=== PATIENT | female | born 2005 | race Caucasian/White ===

== ENCOUNTER 2024-05-11 12:43 | Observation (INO) | payer OTHER ==
[2024-05-11 14:41] LABS: HCG URINE TEST POSITIVE (NEGATIVE)
[2024-05-11 14:44] LABS: Absolute Neutrophil Ct (ANC) 12.22 x10^3/uL (1.56-6.13); BASOPHIL % 0.3 % (0.1-1.2); Basophil (Absolute #) 0.04 x10^3/uL (0.01-0.08); Eosinophil % 0.3 % (0.7-5.8); Eosinophil (Absolute #) 0.05 x10^3/uL (0.04-0.36); Hematocrit 38.9 % (34.1-44.9); Hemoglobin 13.2 g/dL (11.2-15.7); IMMATURE GRAN # 0.05 x10^3u/L (0.001-0.031); IMMATURE GRAN % 0.3 % (0.001-0.429); Lymphocyte (Absolute #) 1.62 x10^3/uL (1.18-3.74); Lymphocytes % 11.1 % (19.3-51.7); Mean Cell Volume 82.2 fL (79.4-94.8); Mean Corpuscular Hemoglobin 27.9 pg (25.6-32.2); Mean Corpuscular Hgb Concent. 33.9 g/dL (32.2-35.5); Mean Platelet Volume 8.9 fL (9.4-12.3); Monocyte (Absolute #) 0.64 x10^3/uL (0.24-0.86); Monocytes % 4.4 % (4.7-12.5); Neutrophil % 83.6 % (34.0-71.1); Platelet Count 351 x10^3/uL (182-369); Red Blood Count 4.73 x10^6/uL (3.93-5.22); Red Cell Distribution Width 13.3 % (11.7-14.4); White Blood Count 14.6 x10^3/uL (3.98-10.04)
[2024-05-11 14:56] LABS: Appearance Cloudy (Clear); Bacteria Many /HPF (None Seen); Bilirubin Negative (Negative); Blood Trace (Negative); Epithelial Cells Few /HPF (None Seen); Glucose, Urine Negative (Negative); Ketones >=160 (Negative); Leukocyte Esterase Small (Negative); Nitrite Positive (Negative); Ph 5.5 (4.6-8.0); Protein,Urine Dip 100 (Negative); RBC 0-2 /HPF (0-5); Specific Gravity 1.025 (1.005-1.030)
[2024-05-11 14:56] LABS: ALBUMIN 4.7 g/dL (3.5-5.0); ANION GAP 20.2 MEQ/L (5-15); BILIRUBIN,TOTAL 0.9 mg/dL (0.2-1.3); Calcium 9.4 mg/dL (8.4-10.2); Creatinine 1 0.55 mg/dL (0.52-1.04); EST GLOMERULAR FILTRATION RATE 133.7 ML/MIN; Total Protein 8.7 g/dL (6.3-8.2)
[2024-05-11 14:57] LABS: Hyaline Casts None Seen /LPF (0-2); Mucus Moderate /HPF (NEGATIVE)
[2024-05-11] MEDS ORDERED: Zofran 4 MG/2 ML VIAL ONE (15:02)
[2024-05-11] MEDS ORDERED: TYLENOL 325 MG ONE (15:02)
[2024-05-11] MEDS ORDERED: Sodium Chloride 0.9% 1000 ML 1,000 ML ONE (15:02)
[2024-05-11] MEDS: Sodium Chloride 0.9% 1000 ML 1,000 ML IV STA (15:05)
[2024-05-11 15:06] LABS: Potassium 2.9 mmol/L (3.5-5.1)
[2024-05-11] MEDS: TYLENOL 325 MG PO ONE (15:06)
[2024-05-11] MEDS: Zofran 4 MG/2 ML VIAL IV ONE (15:08)
[2024-05-11 15:22] LABS: INFLUENZA A NEGATIVE (NEGATIVE); INFLUENZA B NEGATIVE (NEGATIVE); RESPIRATORY SYNCTIAL VIRUS NEGATIVE (NEGATIVE); SARS-CoV-2 Xpert Express NEGATIVE (NEGATIVE)
[2024-05-11] MEDS ORDERED: POTASSIUM CHLORIDE 20 mEq IN WATER 100ML 100 ML IV ONE (16:23)
[2024-05-11] MEDS ORDERED: Klor Con ONE (16:23)
[2024-05-11] MEDS: POTASSIUM CHLORIDE 20 mEq IN WATER 100ML 20 MEQ/100 ML BAG IV ONE (16:25)
[2024-05-11] MEDS: Klor Con PO ONE (16:25)
[2024-05-11] MEDS: Sodium Chloride 0.9% 500 ML 500 ML IV SCH (16:26)
--- NOTE | 2024-05-11 18:42 | ERPHSYRPT ---
- History of Present Illness Time Seen by Provider: 05/11/24 13:53 Source: patient Exam Limitations: no limitations Patient Subjective Stated Complaint: C/O cough, fatigue, headache X 2 weeks. Denies fever. States coughs so hard at times that she vomits up mucuous. No naus ea. Triage Nursing Assessment: Patient ambulated back to ER. She is alert and oriented. SOB with exertion. Forceful, non-productive cough during assessment. Lungs clear. REIS WNL. Patient is pale. Patient is hoarse. Physician History: 19-year-old female presented in the ER with flulike symptoms for the last 2 weeks with progressive worsening. Patient reports nonproductive cough with bouts and sometimes does have vomiting. Because of repeated coughing having generalized chest soreness. No difficulty breathing otherwise. Reports having nausea without abdominal pain. Denies any UTI symptoms. No fever or chills but generalized weakness, headache, sinus/nasal congestion. She has been evaluated outpatient twice with negative workup including x-rays chest x 2. Patient is tachycardic on presentation with heart rate in 140s on presentation. Allergies/Adverse Reactions: amoxicillin [From Augmentin] Allergy (Verified 05/11/24 13:59) cefdinir [From Omnicef] Allergy (Verified 05/11/24 13:59) cephalexin [From Keflex] Allergy (Verified 05/11/24 13:59) clavulanic acid [From Augmentin] Allergy (Verified 05/11/24 13:59) Home Medications: No Reportable Medications [No Reported Medications] 05/11/24 [History] Hx Tetanus, Diphtheria Vaccination/Date Given: Yes Immunizations Up to Date: Yes Travel Risk - International Travel Have you traveled outside of the country in past 3 weeks: No - Emerging Infectious Disease Are you exhibiting symptoms associated with any current EIDs: Yes Symptoms: Cough: New Onset, Headaches/Body Aches/, Shortness of Breath - Review of Systems Constitutional: Fatigue, Weakness Eyes: No Symptoms Ears, Nose, & Throat: Nose Congestion, Sinus Drainage Respiratory: Cough Cardiac: Chest Pain Abdominal/Gastrointestinal: Nausea Genitourinary Symptoms: No Symptoms Musculoskeletal: Myalgias Skin: No Symptoms Neurological: Dizziness, Headache Psychological: Anxiety Endocrine: No Symptoms Hematologic/Lymphatic: No Symptoms - Past Medical History Pertinent Past Medical History: Yes Respiratory History: Bronchitis - Past Surgical History Past Surgical History: Yes Other Surgical History: tubes in ears - Female History Hx Last Menstrual Period: April 04, 2024 Hx Now: No - Social History Smoking Status: Never smoker Exposure to second hand smoke: No Drug Use: marijuana - Social Determinants of Health Will the patient participate in the screening: Declined to provide - Nursing Vital Signs Nursing Vital Signs: Initial Vital Signs Pulse Rate 140 H 05/11/24 14:00 Respiratory Rate 19 05/11/24 14:00 Blood Pressure 136/90 05/11/24 14:00 O2 Sat by Pulse Oximetry 98 05/11/24 14:00 Pain Scale Pain Intensity 5 - Physical Exam General Appearance: no apparent distress, alert, anxiety Eye Exam: PERRL/EOMI Ears, Nose, Throat Exam: moist mucous membranes, pharyngeal erythema Neck Exam: normal inspection, non-tender, supple, full range of motion Respiratory Exam: normal breath sounds, lungs clear Cardiovascular Exam: normal heart sounds, tachycardia Gastrointestinal/Abdomen Exam: soft, normal bowel sounds, No tenderness Back Exam: normal inspection Extremity Exam: normal inspection, normal range of motion Neurologic Exam: alert, oriented x 3, cooperative, motion picture set grip II-XII nml as tested SpO2 Interpretation: normal SpO2: 97 O2 Delivery: Room Air Ordered Tests: Active Orders 24 hr Category Date Time Status IV Insertion STAT Care 05/11/24 14:12 Active Pulse Oximetry (ED) STAT Care 05/11/24 14:12 Active Telemetry q4h Care 05/11/24 15:31 Active BLOOD CULTURE Stat Lab 05/11/24 14:38 Received CBC W DIFF Stat Lab 05/11/24 14:38 Completed CMP Stat Lab 05/11/24 14:38 Completed CULTURE,URINE Stat Lab 05/11/24 14:13 Received HCG QUALITATIVE, URINE Stat Lab 05/11/24 14:13 Completed HCG, Quantitative (Inhouse) Stat Lab 05/11/24 14:13 Completed LIPASE Stat Lab 05/11/24 14:13 Completed Lactic Acid Stat Lab 05/11/24 14:12 Completed MAGNESIUM Stat Lab 05/11/24 14:15 Completed MONO SCREEN Stat Lab 05/11/24 14:13 Completed UA W/RFX UR CULTURE Stat Lab 05/11/24 14:13 Completed Medication Summary Generic Name Dose Route Start Last Admin Trade Name Freq PRN Reason Stop Dose Admin Sodium Chloride 500 mls @ 50 mls/hr 05/11/24 16:30 05/11/24 16:26 Sodium Chloride 0.9% 500 Ml IV 06/10/24 16:29 50 mls/hr .Q10H CAMILO Administration Discontinued Medications Generic Name Dose Route Start Last Admin Trade Name Solo PRN Reason Stop Dose Admin Acetaminophen 975 mg 05/11/24 14:57 05/11/24 15:06 Acetaminophen 325 Mg Tablet PO 05/11/24 14:58 975 mg STAT ONE Administration Acetaminophen Confirm 05/11/24 15:02 Acetaminophen 325 Mg Tablet Administered 05/11/24 15:03 Dose 975 mg .ROUTE .STK-MED ONE Sodium Chloride 1,000 mls @ 999 mls/hr 05/11/24 14:57 05/11/24 16:10 Sodium Chloride 0.9% 1000 Ml IV 05/11/24 15:57 Infused .Q1H1M STA Infusion Sodium Chloride Confirm 05/11/24 15:02 Sodium Chloride 0.9% 1000 Ml Administered 05/11/24 15:03 Dose 1,000 mls @ ud .ROUTE .STK-MED ONE Potassium Chloride 20 meq in 100 mls @ 50 mls/hr 05/11/24 15:31 05/11/24 16:25 Potassium Chloride 20 Meq In Water 100ml IV 05/11/24 17:30 50 mls/hr STAT ONE Administration Potassium Chloride Confirm 05/11/24 16:23 Potassium Chloride 20 Meq In Water 100ml Administered 05/11/24 16:24 Dose 100 mls @ ud IV .STK-MED ONE Ondansetron HCl 4 mg 05/11/24 14:57 05/11/24 15:08 Ondansetron Hcl 4 Mg/2 Ml Vial IV 05/11/24 14:58 4 mg STAT ONE Administration Ondansetron HCl Confirm 05/11/24 15:02 Ondansetron Hcl 4 Mg/2 Ml Vial Administered 05/11/24 15:03 Dose 4 mg .ROUTE .STK-MED ONE Potassium Chloride 40 meq 05/11/24 15:31 05/11/24 16:25 Potassium Chloride Tab 10 Meq Tab PO 05/11/24 15:32 40 meq STAT ONE Administration Potassium Chloride Confirm 05/11/24 16:23 Potassium Chloride Tab 10 Meq Tab Administered 05/11/24 16:24 Dose 40 meq .ROUTE .STK-MED ONE Lab/Rad Data: Laboratory Result Diagrams 05/11/24 14:38 05/11/24 14:38 Laboratory Results 05/11/24 05/11/24 05/11/24 Range/Units 14:38 14:38 14:38 WBC 14.6 H (3.98-10.04) x10^3/uL RBC 4.73 (3.93-5.22) x10^6/uL Hgb 13.2 (11.2-15.7) g/dL Hct 38.9 (34.1-44.9) % MCV 82.2 (79.4-94.8) fL MCH 27.9 (25.6-32.2) pg MCHC 33.9 (32.2-35.5) g/dL RDW 13.3 (11.7-14.4) % Plt Count 351 (182-369) x10^3/uL MPV 8.9 L (9.4-12.3) fL Gran % 83.6 H (34.0-71.1) % Immature Gran % (Auto) 0.3 (0.001-0.429) % Nucleat RBC Rel Count 0.0 (0.00-0.2) % Eos # (Auto) 0.05 (0.04-0.36) x10^3/uL Immature Gran # (Auto) 0.05 H (0.001-0.031) x10^3u/L Absolute Lymphs (auto) 1.62 (1.18-3.74) x10^3/uL Absolute Monos (auto) 0.64 (0.24-0.86) x10^3/uL Absolute Nucleated RBC 0.00 (0.00-0.012) x10^3u/L Lymphocytes % 11.1 L (19.3-51.7) % Monocytes % 4.4 L (4.7-12.5) % Eosinophils % 0.3 L (0.7-5.8) % Basophils % 0.3 (0.1-1.2) % Absolute Granulocytes 12.22 H (1.56-6.13) x10^3/uL Basophils # 0.04 (0.01-0.08) x10^3/uL Sodium 136 (135-145) mmol/L Potassium 2.9 L* (3.5-5.1) mmol/L Chloride 100 (98-107) mmol/L Carbon Dioxide 18 L (22-30) mmol/L Anion Gap 20.2 H (5-15) MEQ/L BUN 6 L (7-17) mg/dL Creatinine 0.55 (0.52-1.04) mg/dL Estimated GFR 133.7 ML/MIN Glucose 100 (74-106) mg/dL Lactic Acid (0.4-2.0) Calcium 9.4 (8.4-10.2) mg/dL Magnesium (1.6-2.3) mg/dL Total Bilirubin 0.90 (0.2-1.3) mg/dL AST 26 (14-36) U/L ALT 21 (0-35) U/L Alkaline Phosphatase 117 (38-126) U/L Serum Total Protein 8.7 H (6.3-8.2) g/dL Albumin 4.7 (3.5-5.0) g/dL Lipase (23-300) U/L Beta HCG, Quant mIU/ml Urine Color (Yellow) Urine Appearance (Clear) Urine pH (4.6-8.0) Ur Specific [place] (1.005-1.030) Urine Protein (Negative) Urine Glucose (UA) (Negative) mg/dL Urine Ketones (Negative) Urine Blood (Negative) Urine Nitrite (Negative) Urine Bilirubin (Negative) Urine Urobilinogen (0.2) mg/dL Ur Leukocyte Esterase (Negative) U Hyaline Cast (Auto) (0-2) /LPF Urine Microscopic RBC (0-5) /HPF Urine Microscopic WBC (0-5) /HPF Ur Epithelial Cells (None Seen) /HPF Urine Bacteria (None Seen) /HPF Urine Mucus (NEGATIVE) /HPF Urine Culture Reflexed (NO) Urine HCG, Qual (NEGATIVE) Monoscreen (NEGATIVE) Influenza Type A Ag NEGATIVE (NEGATIVE) Influenza Type B Ag NEGATIVE (NEGATIVE) RSV (PCR) NEGATIVE (NEGATIVE) SARS-CoV-2 (PCR) NEGATIVE (NEGATIVE) 05/11/24 05/11/24 05/11/24 Range/Units 14:15 14:13 14:13 WBC (3.98-10.04) x10^3/uL RBC (3.93-5.22) x10^6/uL Hgb (11.2-15.7) g/dL Hct (34.1-44.9) % MCV (79.4-94.8) fL MCH (25.6-32.2) pg MCHC (32.2-35.5) g/dL RDW (11.7-14.4) % Plt Count (182-369) x10^3/uL MPV (9.4-12.3) fL Gran % (34.0-71.1) % Immature Gran % (Auto) (0.001-0.429) % Nucleat RBC Rel Count (0.00-0.2) % Eos # (Auto) (0.04-0.36) x10^3/uL Immature Gran # (Auto) (0.001-0.031) x10^3u/L Absolute Lymphs (auto) (1.18-3.74) x10^3/uL Absolute Monos (auto) (0.24-0.86) x10^3/uL Absolute Nucleated RBC (0.00-0.012) x10^3u/L Lymphocytes % (19.3-51.7) % Monocytes % (4.7-12.5) % Eosinophils % (0.7-5.8) % Basophils % (0.1-1.2) % Absolute Granulocytes (1.56-6.13) x10^3/uL Basophils # (0.01-0.08) x10^3/uL Sodium (135-145) mmol/L Potassium (3.5-5.1) mmol/L Chloride (98-107) mmol/L Carbon Dioxide (22-30) mmol/L Anion Gap (5-15) MEQ/L BUN (7-17) mg/dL Creatinine (0.52-1.04) mg/dL Estimated GFR ML/MIN Glucose (74-106) mg/dL Lactic Acid (0.4-2.0) Calcium (8.4-10.2) mg/dL Magnesium 1.9 (1.6-2.3) mg/dL Total Bilirubin (0.2-1.3) mg/dL AST (14-36) U/L ALT (0-35) U/L Alkaline Phosphatase (38-126) U/L Serum Total Protein (6.3-8.2) g/dL Albumin (3.5-5.0) g/dL Lipase 32 (23-300) U/L Beta HCG, Quant 368.00 mIU/ml Urine Color (Yellow) Urine Appearance (Clear) Urine pH (4.6-8.0) Ur Specific [place] (1.005-1.030) Urine Protein (Negative) Urine Glucose (UA) (Negative) mg/dL Urine Ketones (Negative) Urine Blood (Negative) Urine Nitrite (Negative) Urine Bilirubin (Negative) Urine Urobilinogen (0.2) mg/dL Ur Leukocyte Esterase (Negative) U Hyaline Cast (Auto) (0-2) /LPF Urine Microscopic RBC (0-5) /HPF Urine Microscopic WBC (0-5) /HPF Ur Epithelial Cells (None Seen) /HPF Urine Bacteria (None Seen) /HPF Urine Mucus (NEGATIVE) /HPF Urine Culture Reflexed (NO) Urine HCG, Qual POSITIVE (NEGATIVE) Monoscreen NEGATIVE (NEGATIVE) Influenza Type A Ag (NEGATIVE) Influenza Type B Ag (NEGATIVE) RSV (PCR) (NEGATIVE) SARS-CoV-2 (PCR) (NEGATIVE) 05/11/24 05/11/24 Range/Units 14:13 14:12 WBC (3.98-10.04) x10^3/uL RBC (3.93-5.22) x10^6/uL Hgb (11.2-15.7) g/dL Hct (34.1-44.9) % MCV (79.4-94.8) fL MCH (25.6-32.2) pg MCHC (32.2-35.5) g/dL RDW (11.7-14.4) % Plt Count (182-369) x10^3/uL MPV (9.4-12.3) fL Gran % (34.0-71.1) % Immature Gran % (Auto) (0.001-0.429) % Nucleat RBC Rel Count (0.00-0.2) % Eos # (Auto) (0.04-0.36) x10^3/uL Immature Gran # (Auto) (0.001-0.031) x10^3u/L Absolute Lymphs (auto) (1.18-3.74) x10^3/uL Absolute Monos (auto) (0.24-0.86) x10^3/uL Absolute Nucleated RBC (0.00-0.012) x10^3u/L Lymphocytes % (19.3-51.7) % Monocytes % (4.7-12.5) % Eosinophils % (0.7-5.8) % Basophils % (0.1-1.2) % Absolute Granulocytes (1.56-6.13) x10^3/uL Basophils # (0.01-0.08) x10^3/uL Sodium (135-145) mmol/L Potassium (3.5-5.1) mmol/L Chloride (98-107) mmol/L Carbon Dioxide (22-30) mmol/L Anion Gap (5-15) MEQ/L BUN (7-17) mg/dL Creatinine (0.52-1.04) mg/dL Estimated GFR ML/MIN Glucose (74-106) mg/dL Lactic Acid 1.2 (0.4-2.0) Calcium (8.4-10.2) mg/dL Magnesium (1.6-2.3) mg/dL Total Bilirubin (0.2-1.3) mg/dL AST (14-36) U/L ALT (0-35) U/L Alkaline Phosphatase (38-126) U/L Serum Total Protein (6.3-8.2) g/dL Albumin (3.5-5.0) g/dL Lipase (23-300) U/L Beta HCG, Quant mIU/ml Urine Color Dark Yellow A (Yellow) Urine Appearance Cloudy A (Clear) Urine pH 5.5 (4.6-8.0) Ur Specific [place] 1.025 (1.005-1.030) Urine Protein 100 A (Negative) Urine Glucose (UA) Negative (Negative) mg/dL Urine Ketones >=160 A (Negative) Urine Blood Trace (Negative) Urine Nitrite Positive A (Negative) Urine Bilirubin Negative (Negative) Urine Urobilinogen 1.0 A (0.2) mg/dL Ur Leukocyte Esterase Small A (Negative) U Hyaline Cast (Auto) None Seen (0-2) /LPF Urine Microscopic RBC 0-2 (0-5) /HPF Urine Microscopic WBC 3-5 (0-5) /HPF Ur Epithelial Cells Few (None Seen) /HPF Urine Bacteria Many A (None Seen) /HPF Urine Mucus Moderate A (NEGATIVE) /HPF Urine Culture Reflexed YES (NO) Urine HCG, Qual (NEGATIVE) Monoscreen (NEGATIVE) Influenza Type A Ag (NEGATIVE) Influenza Type B Ag (NEGATIVE) RSV (PCR) (NEGATIVE) SARS-CoV-2 (PCR) (NEGATIVE) - Progress Progress: improved, re-examined Air Movement: good Progress Note: 05/11/24 18:42 19-year-old is evaluated in the ER for flulike symptoms for 2 weeks. Patient is tachycardic on presentation, lungs clear to auscultation otherwise. No difficulty breathing. No wheezing. She is given fluids, feeling better on reevaluation with improvement in resting heart rate from 1 40-1 20s but still gets tachycardic with little activity. Workup showed white count of 14, chemistries consistent with dehydration with a gap of 20 and bicarb of 18. Does have UTI. Normal lipase. She is given a dose of antibiotics. Also has a potassium of 2.9 with normal magnesium and started on oral and IV replacement. Patient has a positive urine test and hCG quant is 368. Is too early to have any kind of heart tones and patient does not have any pelvic/abdominal pain and tenderness. Patient later on reported that she is 7 para 2 and does have 1 tubal and 3 miscarriages. I do not think patient needs ultrasound and her stuff is more of a medical related, would benefit with IV hydration and treating UTI. Although I did discussed with Dr. Dickey OB on-call and he would be available in case if hospitalist need any help during her stay in the hospital but otherwise patient would be admitted to the hospitalist service. I have discussed with Dr. Flores and patient is being admitted. Discussed the results of workup with patient and plan of admission w [facility] she understands and agrees. 05/11/24 18:45 Blood Culture(s) Obtained: No Antibiotics given: No Discussed with : Liane Marquez Counseled pt/family regarding: lab results, diagnosis, rad results Medical Desision Making - Discussion of managment Care discussed with:: specialist (Dr. Dickey [employer] and Dr. Flores hospitalist) Reviewed:: Test results Agreed on:: Treatment plan, place in obs Will see patient: in hospital - Diagnostic Testing Diagnostic test were ordered, analyzed, and reviewed by me: Yes - Risk of complications The pt has a mod risk of morbidity or mortality based on: Need for prescription drug management The pt has a high risk of morbidity or mortality based on: Decision regarding hospitilization or escalation of hosp level of care - Departure Departure Disposition: Observation Clinical Impression: UTI in , Viral syndrome, Dehydration, Hypokalemia Condition: Stable Critical Care Time: No Referrals: FRIEDA MILLER MD [Primary Care Provider] - Follow up/PCP as directed
[2024-05-11] MEDS ORDERED: TYLENOL 325 MG PO PRN (20:33)
[2024-05-11] MEDS ORDERED: Zofran 4 MG/2 ML VIAL IV PRN (20:33)
--- NOTE | 2024-05-11 21:03 | PCM.HP ---
History of Present Illness - Chief Complaint Chief Complaint: viral syndrome, dehydration, tachycardia Date: 05/11/24 History of Present Illness: is a 19 year old female with a prior history of a tubal who now presented to the hospital with flulike symptoms for the last 2 weeks with progressive worsening. Patient reports productive cough with green sputum and sometimes does have vomiting. Because of repeated coughing having generalized chest soreness. No difficulty breathing otherwise. Reports having nausea without abdominal pain. She reports foul smelling urine and dark urine over the last few days, but denies hematuria or pyuria. No fever or chills but generalized weakness, headache, sinus/nasal congestion. She has been evaluated outpatient twice with negative workup including x-rays chest x 2. In the ED, the patient was tachycardic on presentation with heart rate in 140s on presentation. The patient was noted to have a UTI by UA and given antibiotics and was also noted to have a (this is her 7th ). 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 - Review of Systems Constitutional: No Symptoms Eyes: No Symptoms Ears, Nose, & Throat: No Symptoms Respiratory: Cough Cardiac: Chest Pain Abdominal/Gastrointestinal: Nausea Genitourinary Symptoms: Other (dark urine, foul smelling urine) Musculoskeletal: No Symptoms Skin: No Symptoms Neurological: No Symptoms Psychological: No Symptoms Endocrine: No Symptoms Hematologic/Lymphatic: No Symptoms Medications & Allergies Home Medications: Home Medication List No Reportable Medications [No Reported Medications] 05/11/24 [History Confirmed 05/11/24] Allergies/Adverse Reactions: Allergies Allergy/AdvReac Type Severity Reaction Status Date / Time amoxicillin [From Augmentin] Allergy Verified 05/11/24 13:59 cefdinir [From Omnicef] Allergy Verified 05/11/24 13:59 cephalexin [From Keflex] Allergy Verified 05/11/24 13:59 clavulanic acid Allergy Verified 05/11/24 13:59 [From Augmentin] - Past Medical History Past Medical History: Yes Neurological History: No Pertinent History ENT History: No Pertinent History Cardiac History: No Pertinent History Respiratory History: Bronchitis Endocrine Medical History: No Pertinent History Musculoskelatal History: No Pertinent History GI Medical History: No Pertinent History History: No Pertinent History Pyscho-Social History: No Pertinent History Reproductive Disorders: No Pertinent History - Female History Hx Last Menstrual Period: 04/04/2024 Are you now?: Yes - Past Surgical History Past Surgical History: Yes Neuro Surgical History: No Pertinent History Cardiac History: No Pertinent History Respiratory Surgery: No Pertinent History GI Surgical History: No Pertinent History Genitourinary Surgical Hx: No Pertinent History Musculskeletal Surgical Hx: No Pertinent History Female Surgical History: No Pertinent History Other Surgical History: tubes in ears Family History: No family history of urological disorders are reported. - Social History Smoking Status: Current every day smoker How long have you smoked: 5 years Exposure to second hand smoke: No Alcohol: None Drug Use: marijuana - Social Determinants of Health Will the patient participate in the screening: Yes Do you worry about a steady place to live?: No Do you have any problems with any of the following?: No known problems In the past 12 months,have you had to go without utilities?: No Have you or anyone in your house had to go without enough: No Transportation Issues: No Has anyone in your support network made you feel unsafe?: No Does the patient want assistance with any of the above?: No - Physical Exam Vital Signs: Vital Signs - 24 hr Temp Pulse Resp BP BP Pulse Ox 05/11/24 19:50 99.5 F 113 H 18 116/72 98 05/11/24 19:15 116 H 16 122/84 96 05/11/24 19:00 121 H 21 122/83 96 05/11/24 18:49 97 05/11/24 18:45 105 H 19 117/81 97 05/11/24 18:30 118 H 18 118/78 97 05/11/24 18:15 109 H 13 117/76 95 05/11/24 18:00 108 H 22 110/84 96 05/11/24 17:45 125 H 16 131/74 96 05/11/24 17:30 117 H 20 118/72 97 05/11/24 17:15 117 H 18 122/71 96 05/11/24 17:00 126 H 15 99/73 96 05/11/24 16:45 115 H 13 121/79 97 05/11/24 16:30 116 H 14 123/68 96 05/11/24 16:15 132 H 18 123/65 97 05/11/24 16:00 126 H 19 121/60 97 05/11/24 15:45 122 H 20 103/70 97 05/11/24 15:30 133 H 20 120/69 96 05/11/24 15:18 123 H 27 H 108/81 97 05/11/24 15:00 137 H 17 122/80 97 05/11/24 14:30 122/66 97 05/11/24 14:12 99 05/11/24 14:01 98.1 F 134 H 22 136/90 98 05/11/24 14:00 140 H 19 136/90 98 General Appearance: no apparent distress, alert Neurologic Exam: alert, oriented x 3, cooperative, poultry scalder II-XII nml as tested, normal mood/affect, nml cerebellar function Eye Exam: PERRL/EOMI, eyes nml inspection Ears, Nose, Throat Exam: normal ENT inspection Neck Exam: normal inspection, non-tender, supple, full range of motion Respiratory Exam: normal breath sounds, lungs clear Cardiovascular Exam: regular rate/rhythm, normal heart sounds Gastrointestinal/Abdomen Exam: soft, normal bowel sounds Back Exam: normal range of motion Extremity Exam: normal inspection, normal range of motion Skin Exam: normal color Lymphatic Exam: adenopathy Results - Labs Lab/Micro Results: Lab Results-Last 24 Hours 05/11/24 05/11/24 05/11/24 Range/Units 14:12 14:13 14:13 WBC (3.98-10.04) x10^3/uL RBC (3.93-5.22) x10^6/uL Hgb (11.2-15.7) g/dL Hct (34.1-44.9) % MCV (79.4-94.8) fL MCH (25.6-32.2) pg MCHC (32.2-35.5) g/dL RDW (11.7-14.4) % Plt Count (182-369) x10^3/uL MPV (9.4-12.3) fL Gran % (34.0-71.1) % Immature Gran % (Auto) (0.001-0.429) % Nucleat RBC Rel Count (0.00-0.2) % Eos # (Auto) (0.04-0.36) x10^3/uL Immature Gran # (Auto) (0.001-0.031) x10^3u/L Absolute Lymphs (auto) (1.18-3.74) x10^3/uL Absolute Monos (auto) (0.24-0.86) x10^3/uL Absolute Nucleated RBC (0.00-0.012) x10^3u/L Lymphocytes % (19.3-51.7) % Monocytes % (4.7-12.5) % Eosinophils % (0.7-5.8) % Basophils % (0.1-1.2) % Absolute Granulocytes (1.56-6.13) x10^3/uL Basophils # (0.01-0.08) x10^3/uL Sodium (135-145) mmol/L Potassium (3.5-5.1) mmol/L Chloride (98-107) mmol/L Carbon Dioxide (22-30) mmol/L Anion Gap (5-15) MEQ/L BUN (7-17) mg/dL Creatinine (0.52-1.04) mg/dL Estimated GFR ML/MIN Glucose (74-106) mg/dL Lactic Acid 1.2 (0.4-2.0) Calcium (8.4-10.2) mg/dL Magnesium (1.6-2.3) mg/dL Total Bilirubin (0.2-1.3) mg/dL AST (14-36) U/L ALT (0-35) U/L Alkaline Phosphatase (38-126) U/L Serum Total Protein (6.3-8.2) g/dL Albumin (3.5-5.0) g/dL Lipase (23-300) U/L Beta HCG, Quant mIU/ml Urine Color Dark Yellow A (Yellow) Urine Appearance Cloudy A (Clear) Urine pH 5.5 (4.6-8.0) Ur Specific [place] 1.025 (1.005-1.030) Urine Protein 100 A (Negative) Urine Glucose (UA) Negative (Negative) mg/dL Urine Ketones >=160 A (Negative) Urine Blood Trace (Negative) Urine Nitrite Positive A (Negative) Urine Bilirubin Negative (Negative) Urine Urobilinogen 1.0 A (0.2) mg/dL Ur Leukocyte Esterase Small A (Negative) U Hyaline Cast (Auto) None Seen (0-2) /LPF Urine Microscopic RBC 0-2 (0-5) /HPF Urine Microscopic WBC 3-5 (0-5) /HPF Ur Epithelial Cells Few (None Seen) /HPF Urine Bacteria Many A (None Seen) /HPF Urine Mucus Moderate A (NEGATIVE) /HPF Urine Culture Reflexed YES (NO) Urine HCG, Qual POSITIVE (NEGATIVE) Monoscreen NEGATIVE (NEGATIVE) Influenza Type A Ag (NEGATIVE) Influenza Type B Ag (NEGATIVE) RSV (PCR) (NEGATIVE) SARS-CoV-2 (PCR) (NEGATIVE) 05/11/24 05/11/24 05/11/24 Range/Units 14:13 14:15 14:38 WBC 14.6 H (3.98-10.04) x10^3/uL RBC 4.73 (3.93-5.22) x10^6/uL Hgb 13.2 (11.2-15.7) g/dL Hct 38.9 (34.1-44.9) % MCV 82.2 (79.4-94.8) fL MCH 27.9 (25.6-32.2) pg MCHC 33.9 (32.2-35.5) g/dL RDW 13.3 (11.7-14.4) % Plt Count 351 (182-369) x10^3/uL MPV 8.9 L (9.4-12.3) fL Gran % 83.6 H (34.0-71.1) % Immature Gran % (Auto) 0.3 (0.001-0.429) % Nucleat RBC Rel Count 0.0 (0.00-0.2) % Eos # (Auto) 0.05 (0.04-0.36) x10^3/uL Immature Gran # (Auto) 0.05 H (0.001-0.031) x10^3u/L Absolute Lymphs (auto) 1.62 (1.18-3.74) x10^3/uL Absolute Monos (auto) 0.64 (0.24-0.86) x10^3/uL Absolute Nucleated RBC 0.00 (0.00-0.012) x10^3u/L Lymphocytes % 11.1 L (19.3-51.7) % Monocytes % 4.4 L (4.7-12.5) % Eosinophils % 0.3 L (0.7-5.8) % Basophils % 0.3 (0.1-1.2) % Absolute Granulocytes 12.22 H (1.56-6.13) x10^3/uL Basophils # 0.04 (0.01-0.08) x10^3/uL Sodium (135-145) mmol/L Potassium (3.5-5.1) mmol/L Chloride (98-107) mmol/L Carbon Dioxide (22-30) mmol/L Anion Gap (5-15) MEQ/L BUN (7-17) mg/dL Creatinine (0.52-1.04) mg/dL Estimated GFR ML/MIN Glucose (74-106) mg/dL Lactic Acid (0.4-2.0) Calcium (8.4-10.2) mg/dL Magnesium 1.9 (1.6-2.3) mg/dL Total Bilirubin (0.2-1.3) mg/dL AST (14-36) U/L ALT (0-35) U/L Alkaline Phosphatase (38-126) U/L Serum Total Protein (6.3-8.2) g/dL Albumin (3.5-5.0) g/dL Lipase 32 (23-300) U/L Beta HCG, Quant 368.00 mIU/ml Urine Color (Yellow) Urine Appearance (Clear) Urine pH (4.6-8.0) Ur Specific [place] (1.005-1.030) Urine Protein (Negative) Urine Glucose (UA) (Negative) mg/dL Urine Ketones (Negative) Urine Blood (Negative) Urine Nitrite (Negative) Urine Bilirubin (Negative) Urine Urobilinogen (0.2) mg/dL Ur Leukocyte Esterase (Negative) U Hyaline Cast (Auto) (0-2) /LPF Urine Microscopic RBC (0-5) /HPF Urine Microscopic WBC (0-5) /HPF Ur Epithelial Cells (None Seen) /HPF Urine Bacteria (None Seen) /HPF Urine Mucus (NEGATIVE) /HPF Urine Culture Reflexed (NO) Urine HCG, Qual (NEGATIVE) Monoscreen (NEGATIVE) Influenza Type A Ag (NEGATIVE) Influenza Type B Ag (NEGATIVE) RSV (PCR) (NEGATIVE) SARS-CoV-2 (PCR) (NEGATIVE) 05/11/24 05/11/24 Range/Units 14:38 14:38 WBC (3.98-10.04) x10^3/uL RBC (3.93-5.22) x10^6/uL Hgb (11.2-15.7) g/dL Hct (34.1-44.9) % MCV (79.4-94.8) fL MCH (25.6-32.2) pg MCHC (32.2-35.5) g/dL RDW (11.7-14.4) % Plt Count (182-369) x10^3/uL MPV (9.4-12.3) fL Gran % (34.0-71.1) % Immature Gran % (Auto) (0.001-0.429) % Nucleat RBC Rel Count (0.00-0.2) % Eos # (Auto) (0.04-0.36) x10^3/uL Immature Gran # (Auto) (0.001-0.031) x10^3u/L Absolute Lymphs (auto) (1.18-3.74) x10^3/uL Absolute Monos (auto) (0.24-0.86) x10^3/uL Absolute Nucleated RBC (0.00-0.012) x10^3u/L Lymphocytes % (19.3-51.7) % Monocytes % (4.7-12.5) % Eosinophils % (0.7-5.8) % Basophils % (0.1-1.2) % Absolute Granulocytes (1.56-6.13) x10^3/uL Basophils # (0.01-0.08) x10^3/uL Sodium 136 (135-145) mmol/L Potassium 2.9 L* (3.5-5.1) mmol/L Chloride 100 (98-107) mmol/L Carbon Dioxide 18 L (22-30) mmol/L Anion Gap 20.2 H (5-15) MEQ/L BUN 6 L (7-17) mg/dL Creatinine 0.55 (0.52-1.04) mg/dL Estimated GFR 133.7 ML/MIN Glucose 100 (74-106) mg/dL Lactic Acid (0.4-2.0) Calcium 9.4 (8.4-10.2) mg/dL Magnesium (1.6-2.3) mg/dL Total Bilirubin 0.90 (0.2-1.3) mg/dL AST 26 (14-36) U/L ALT 21 (0-35) U/L Alkaline Phosphatase 117 (38-126) U/L Serum Total Protein 8.7 H (6.3-8.2) g/dL Albumin 4.7 (3.5-5.0) g/dL Lipase (23-300) U/L Beta HCG, Quant mIU/ml Urine Color (Yellow) Urine Appearance (Clear) Urine pH (4.6-8.0) Ur Specific [place] (1.005-1.030) Urine Protein (Negative) Urine Glucose (UA) (Negative) mg/dL Urine Ketones (Negative) Urine Blood (Negative) Urine Nitrite (Negative) Urine Bilirubin (Negative) Urine Urobilinogen (0.2) mg/dL Ur Leukocyte Esterase (Negative) U Hyaline Cast (Auto) (0-2) /LPF Urine Microscopic RBC (0-5) /HPF Urine Microscopic WBC (0-5) /HPF Ur Epithelial Cells (None Seen) /HPF Urine Bacteria (None Seen) /HPF Urine Mucus (NEGATIVE) /HPF Urine Culture Reflexed (NO) Urine HCG, Qual (NEGATIVE) Monoscreen (NEGATIVE) Influenza Type A Ag NEGATIVE (NEGATIVE) Influenza Type B Ag NEGATIVE (NEGATIVE) RSV (PCR) NEGATIVE (NEGATIVE) SARS-CoV-2 (PCR) NEGATIVE (NEGATIVE) Assessment/Plan (1) UTI in Current Visit: Yes Status: Acute Assessment & Plan: IV Aztreonam due to allergy profile and . Will need to consider with choice of po antibiotics at discharge. Follow culture. Leukocytosis noted. Trend WBC. Code(s): O23.40 - UNSP INFECTION OF URINARY TRACT IN , UNSP TRIMESTER (2) Current Visit: Yes Status: Acute Assessment & Plan: History of tubal noted. Will attempt to obtain a TVUS while hospitalized to evaluate. Follows with Dr. Jenkins. Pharmacy consult for review of all medications. Code(s): Z34.90 - ENCNTR FOR SUPRVSN OF NORMAL , UNSP, UNSP TRIMESTER (3) Cough Current Visit: Yes Status: Acute Assessment & Plan: Had recent negative CXRs. Exam normal. No hypoxia. Will be on antibiotics for UTI. Collect sputum culture. Mucinex. Code(s): R05.9 - COUGH, UNSPECIFIED (4) Dehydration Current Visit: Yes Status: Acute Assessment & Plan: IV fluids. Code(s): E86.0 - DEHYDRATION (5) Hypokalemia Current Visit: Yes Status: Acute Assessment & Plan: Telemetry. Received K in ED. Trend K and check Mag level. Code(s): E87.6 - HYPOKALEMIA Telemedicine Encounter - Telemedicine Encounter Telemedicine Encounter: "The entirety of this encounter was performed via Telemedicine" This visit was performed using real-time audio and video connection between my location and thepatients locationwith the assistance of a surrogateat the patients location. Written or verbal consent was obtained from the patient/guardian to [facility]. Any patient questions regarding the telemedicine interaction were answered.
[2024-05-11] MEDS ORDERED: AZACTAM 1 GM*** 2 GM in Sodium Chloride 0.9% 100 ML IV SCH (22:00)
[2024-05-11] MEDS ORDERED: Mucinex 600MG ER Tabs PO SCH (22:00)
[2024-05-11] MEDS ORDERED: AZACTAM 1 GM ONE (22:06)
[2024-05-11] MEDS ORDERED: Sodium Chloride 100ML MINI-BAG PLUS 100 ML IV ONE (22:06)
[2024-05-11] MEDS: AZACTAM 1 GM*** 2 GM in Sodium Chloride 0.9% 100 ML IV ONE (22:08)
[2024-05-11] MEDS: Robitussin 100 MG/5 ML PO PRN (22:11)
[2024-05-11] MEDS: AZACTAM 1 GM*** 1 GM in Sodium Chloride 100ML MINI-BAG PLUS 100 ML IV SCH (22:12)
[2024-05-12 04:51] LABS: Absolute Neutrophil Ct (ANC) 9.49 x10^3/uL (1.56-6.13); BASOPHIL % 0.3 % (0.1-1.2); Basophil (Absolute #) 0.03 x10^3/uL (0.01-0.08); Eosinophil % 0.4 % (0.7-5.8); Eosinophil (Absolute #) 0.05 x10^3/uL (0.04-0.36); Hematocrit 31.4 % (34.1-44.9); Hemoglobin 10.7 g/dL (11.2-15.7); IMMATURE GRAN # 0.04 x10^3u/L (0.001-0.031); IMMATURE GRAN % 0.3 % (0.001-0.429); Lymphocytes % 13.5 % (19.3-51.7); Mean Cell Volume 82.2 fL (79.4-94.8); Mean Corpuscular Hgb Concent. 34.1 g/dL (32.2-35.5); Mean Platelet Volume 9.2 fL (9.4-12.3); Monocyte (Absolute #) 0.68 x10^3/uL (0.24-0.86); Monocytes % 5.7 % (4.7-12.5); Neutrophil % 79.8 % (34.0-71.1); Platelet Count 312 x10^3/uL (182-369); Red Blood Count 3.82 x10^6/uL (3.93-5.22); Red Cell Distribution Width 13.7 % (11.7-14.4); White Blood Count 11.9 x10^3/uL (3.98-10.04)
[2024-05-12] MEDS ORDERED: Sodium Chloride 100ML MINI-BAG PLUS 100 ML IV ONE (05:00)
[2024-05-12] MEDS ORDERED: AZACTAM 1 GM ONE (05:00)
[2024-05-12 06:13] LABS: ANION GAP 14.1 MEQ/L (5-15); Calcium 8.4 mg/dL (8.4-10.2); Creatinine 1 0.46 mg/dL (0.52-1.04); EST GLOMERULAR FILTRATION RATE 139.5 ML/MIN; Potassium 3.8 mmol/L (3.5-5.1)
[2024-05-12] MEDS: Acidophilus TABLET PO SCH (09:14)
[2024-05-12] MEDS: SODIUM BICARBONATE PO SCH (09:14)
--- NOTE | 2024-05-12 09:36 | XRAY ---
Indication: . History of ectopic. Two-dimensional transvaginal early OB ultrasound performed. Comparison: None Uterus retroflexed without intrauterine gestational sac, pole, or heart tones. Endometrial stripe thickening measuring 1.3 cm. Left and right ovaries are sonographically unremarkable. No suspicious adnexal mass. Tiny cul-de-sac fluid, possibly physiologic from rupture/leaking cyst. Impression: No intrauterine/ectopic . Thickened endometrial stripe. Correlate with serial beta hCG and follow-up sonogram regarding viability.
--- NOTE | 2024-05-12 09:40 | PCM.NOTE ---
Date and Time: 05/12/24 0939 Subjective Assessment: 05/12/24 is a 19 year old female with a prior history of a tubal who presented to the hospital 05/12 with flulike symptoms for the last 2 weeks with progressive worsening. Patient reports productive cough with green sputum and sometimes does have vomiting. Because of repeated coughing having generalized chest soreness. No difficulty breathing otherwise. Reports having nausea without abdominal pain. She reports foul smelling urine and dark urine over the last few days, but denies hematuria or pyuria. No fever or chills but generalized weakness, headache, sinus/nasal congestion. She has been evaluated outpatient twice with negative workup including x-rays chest x 2. In the ED, the patient was tachycardic on presentation with heart rate in 140s on presentation. The patient was noted to have a UTI by UA and given antibiotics and was also noted to have a (this is her 7th ). She follows with Dr. Jenkins (Business Systems Manager). Transvaginal US negative for etopic . HR continues to be elevated from UTI. Urine culture gram negative sensitivity pending. Will continue IV antibiotics. WBC improved. Co2 17 and sodium bicarb started. Continue IVF for dehydration. She denies CP, SOB, abd pain, N/V. She continues to have a cough and diarrhea started this AM. - Review of Systems Constitutional: No Fever, No Chills Eyes: No Symptoms Ears, Nose, & Throat: No Symptoms Respiratory: Cough, No Short Of Breath Cardiac: No Chest Pain, No Edema, No Syncope Abdominal/Gastrointestinal: Diarrhea, No Abdominal Pain, No Nausea, No Vomiting Genitourinary Symptoms: No Dysuria Musculoskeletal: No Back Pain, No Neck Pain Skin: No Rash Neurological: No Dizziness, No Focal Weakness, No Sensory Changes Psychological: No Symptoms Endocrine: No Symptoms Hematologic/Lymphatic: No Symptoms Immunological/Allergic: No Symptoms Objective Exam General Appearance: no apparent distress, alert Neurologic Exam: alert, oriented x 3, cooperative, normal mood/affect, nml cerebellar function, sensation nml, No motor deficits Skin Exam: normal color, warm, dry Eye Exam: PERRL, EOMI, eyes nml inspection Ears, Nose, Throat Exam: normal ENT inspection, pharynx normal, moist mucous me mbranes Neck Exam: normal inspection, non-tender, supple, full range of motion Respiratory Exam: normal breath sounds, lungs clear, No respiratory distress Cardiovascular Exam: regular rate/rhythm, normal heart sounds Gastrointestinal/Abdomen Exam: soft, No tenderness, No mass Extremity Exam: normal inspection, normal range of motion Back Exam: normal inspection, normal range of motion, No CVA tenderness, No vertebral tenderness Pelvic Exam: deferred Rectal Exam: deferred Objective Data Vital Signs: Vital Signs - 24 hr Temp Pulse Resp BP BP Pulse Ox 05/12/24 07:21 107 H 16 114/58 96 05/12/24 04:00 100.3 F 107 H 16 113/57 99 05/12/24 00:00 18 05/11/24 23:42 98.7 F 104 H 18 109/65 99 05/11/24 19:50 99.5 F 113 H 18 116/72 98 05/11/24 19:15 116 H 16 122/84 96 05/11/24 19:00 121 H 21 122/83 96 05/11/24 18:49 97 05/11/24 18:45 105 H 19 117/81 97 05/11/24 18:30 118 H 18 118/78 97 05/11/24 18:15 109 H 13 117/76 95 05/11/24 18:00 108 H 22 110/84 96 05/11/24 17:45 125 H 16 131/74 96 05/11/24 17:30 117 H 20 118/72 97 05/11/24 17:15 117 H 18 122/71 96 05/11/24 17:00 126 H 15 99/73 96 05/11/24 16:45 115 H 13 121/79 97 05/11/24 16:30 116 H 14 123/68 96 05/11/24 16:15 132 H 18 123/65 97 05/11/24 16:00 126 H 19 121/60 97 05/11/24 15:45 122 H 20 103/70 97 05/11/24 15:30 133 H 20 120/69 96 05/11/24 15:18 123 H 27 H 108/81 97 05/11/24 15:00 137 H 17 122/80 97 05/11/24 14:30 122/66 97 05/11/24 14:12 99 05/11/24 14:01 98.1 F 134 H 22 136/90 98 05/11/24 14:00 140 H 19 136/90 98 Pain Assessment - Last Documented Pain Intensity 3 Pain Scale Used 0-10 Pain Scale Intake and Output: Intake & Output 05/09/24 05/10/24 05/11/24 05/12/24 11:59 11:59 11:59 11:59 Intake Total 1541 Output Total 600 Balance 941 Weight 40.8 kg Lab Results: Lab Results-Last 24 Hours 05/11/24 05/11/24 05/11/24 Range/Units 14:12 14:13 14:13 WBC (3.98-10.04) x10^3/uL RBC (3.93-5.22) x10^6/uL Hgb (11.2-15.7) g/dL Hct (34.1-44.9) % MCV (79.4-94.8) fL MCH (25.6-32.2) pg MCHC (32.2-35.5) g/dL RDW (11.7-14.4) % Plt Count (182-369) x10^3/uL MPV (9.4-12.3) fL Gran % (34.0-71.1) % Immature Gran % (Auto) (0.001-0.429) % Nucleat RBC Rel Count (0.00-0.2) % Eos # (Auto) (0.04-0.36) x10^3/uL Immature Gran # (Auto) (0.001-0.031) x10^3u/L Absolute Lymphs (auto) (1.18-3.74) x10^3/uL Absolute Monos (auto) (0.24-0.86) x10^3/uL Absolute Nucleated RBC (0.00-0.012) x10^3u/L Lymphocytes % (19.3-51.7) % Monocytes % (4.7-12.5) % Eosinophils % (0.7-5.8) % Basophils % (0.1-1.2) % Absolute Granulocytes (1.56-6.13) x10^3/uL Basophils # (0.01-0.08) x10^3/uL Sodium (135-145) mmol/L Potassium (3.5-5.1) mmol/L Chloride (98-107) mmol/L Carbon Dioxide (22-30) mmol/L Anion Gap (5-15) MEQ/L BUN (7-17) mg/dL Creatinine (0.52-1.04) mg/dL Estimated GFR ML/MIN Glucose (74-106) mg/dL Lactic Acid 1.2 (0.4-2.0) Calcium (8.4-10.2) mg/dL Magnesium (1.6-2.3) mg/dL Total Bilirubin (0.2-1.3) mg/dL AST (14-36) U/L ALT (0-35) U/L Alkaline Phosphatase (38-126) U/L Serum Total Protein (6.3-8.2) g/dL Albumin (3.5-5.0) g/dL Lipase (23-300) U/L Beta HCG, Quant mIU/ml Urine Color Dark Yellow A (Yellow) Urine Appearance Cloudy A (Clear) Urine pH 5.5 (4.6-8.0) Ur Specific Towner 1.025 (1.005-1.030) Urine Protein 100 A (Negative) Urine Glucose (UA) Negative (Negative) mg/dL Urine Ketones >=160 A (Negative) Urine Blood Trace (Negative) Urine Nitrite Positive A (Negative) Urine Bilirubin Negative (Negative) Urine Urobilinogen 1.0 A (0.2) mg/dL Ur Leukocyte Esterase Small A (Negative) U Hyaline Cast (Auto) None Seen (0-2) /LPF Urine Microscopic RBC 0-2 (0-5) /HPF Urine Microscopic WBC 3-5 (0-5) /HPF Ur Epithelial Cells Few (None Seen) /HPF Urine Bacteria Many A (None Seen) /HPF Urine Mucus Moderate A (NEGATIVE) /HPF Urine Culture Reflexed YES (NO) Urine HCG, Qual POSITIVE (NEGATIVE) Monoscreen NEGATIVE (NEGATIVE) Influenza Type A Ag (NEGATIVE) Influenza Type B Ag (NEGATIVE) RSV (PCR) (NEGATIVE) SARS-CoV-2 (PCR) (NEGATIVE) 05/11/24 05/11/24 05/11/24 Range/Units 14:13 14:15 14:38 WBC 14.6 H (3.98-10.04) x10^3/uL RBC 4.73 (3.93-5.22) x10^6/uL Hgb 13.2 (11.2-15.7) g/dL Hct 38.9 (34.1-44.9) % MCV 82.2 (79.4-94.8) fL MCH 27.9 (25.6-32.2) pg MCHC 33.9 (32.2-35.5) g/dL RDW 13.3 (11.7-14.4) % Plt Count 351 (182-369) x10^3/uL MPV 8.9 L (9.4-12.3) fL Gran % 83.6 H (34.0-71.1) % Immature Gran % (Auto) 0.3 (0.001-0.429) % Nucleat RBC Rel Count 0.0 (0.00-0.2) % Eos # (Auto) 0.05 (0.04-0.36) x10^3/uL Immature Gran # (Auto) 0.05 H (0.001-0.031) x10^3u/L Absolute Lymphs (auto) 1.62 (1.18-3.74) x10^3/uL Absolute Monos (auto) 0.64 (0.24-0.86) x10^3/uL Absolute Nucleated RBC 0.00 (0.00-0.012) x10^3u/L Lymphocytes % 11.1 L (19.3-51.7) % Monocytes % 4.4 L (4.7-12.5) % Eosinophils % 0.3 L (0.7-5.8) % Basophils % 0.3 (0.1-1.2) % Absolute Granulocytes 12.22 H (1.56-6.13) x10^3/uL Basophils # 0.04 (0.01-0.08) x10^3/uL Sodium (135-145) mmol/L Potassium (3.5-5.1) mmol/L Chloride (98-107) mmol/L Carbon Dioxide (22-30) mmol/L Anion Gap (5-15) MEQ/L BUN (7-17) mg/dL Creatinine (0.52-1.04) mg/dL Estimated GFR ML/MIN Glucose (74-106) mg/dL Lactic Acid (0.4-2.0) Calcium (8.4-10.2) mg/dL Magnesium 1.9 (1.6-2.3) mg/dL Total Bilirubin (0.2-1.3) mg/dL AST (14-36) U/L ALT (0-35) U/L Alkaline Phosphatase (38-126) U/L Serum Total Protein (6.3-8.2) g/dL Albumin (3.5-5.0) g/dL Lipase 32 (23-300) U/L Beta HCG, Quant 368.00 mIU/ml Urine Color (Yellow) Urine Appearance (Clear) Urine pH (4.6-8.0) Ur Specific Towner (1.005-1.030) Urine Protein (Negative) Urine Glucose (UA) (Negative) mg/dL Urine Ketones (Negative) Urine Blood (Negative) Urine Nitrite (Negative) Urine Bilirubin (Negative) Urine Urobilinogen (0.2) mg/dL Ur Leukocyte Esterase (Negative) U Hyaline Cast (Auto) (0-2) /LPF Urine Microscopic RBC (0-5) /HPF Urine Microscopic WBC (0-5) /HPF Ur Epithelial Cells (None Seen) /HPF Urine Bacteria (None Seen) /HPF Urine Mucus (NEGATIVE) /HPF Urine Culture Reflexed (NO) Urine HCG, Qual (NEGATIVE) Monoscreen (NEGATIVE) Influenza Type A Ag (NEGATIVE) Influenza Type B Ag (NEGATIVE) RSV (PCR) (NEGATIVE) SARS-CoV-2 (PCR) (NEGATIVE) 05/11/24 05/11/24 05/11/24 Range/Units 14:38 14:38 22:38 WBC (3.98-10.04) x10^3/uL RBC (3.93-5.22) x10^6/uL Hgb (11.2-15.7) g/dL Hct (34.1-44.9) % MCV (79.4-94.8) fL MCH (25.6-32.2) pg MCHC (32.2-35.5) g/dL RDW (11.7-14.4) % Plt Count (182-369) x10^3/uL MPV (9.4-12.3) fL Gran % (34.0-71.1) % Immature Gran % (Auto) (0.001-0.429) % Nucleat RBC Rel Count (0.00-0.2) % Eos # (Auto) (0.04-0.36) x10^3/uL Immature Gran # (Auto) (0.001-0.031) x10^3u/L Absolute Lymphs (auto) (1.18-3.74) x10^3/uL Absolute Monos (auto) (0.24-0.86) x10^3/uL Absolute Nucleated RBC (0.00-0.012) x10^3u/L Lymphocytes % (19.3-51.7) % Monocytes % (4.7-12.5) % Eosinophils % (0.7-5.8) % Basophils % (0.1-1.2) % Absolute Granulocytes (1.56-6.13) x10^3/uL Basophils # (0.01-0.08) x10^3/uL Sodium 136 (135-145) mmol/L Potassium 2.9 L* 4.0 D (3.5-5.1) mmol/L Chloride 100 (98-107) mmol/L Carbon Dioxide 18 L (22-30) mmol/L Anion Gap 20.2 H (5-15) MEQ/L BUN 6 L (7-17) mg/dL Creatinine 0.55 (0.52-1.04) mg/dL Estimated GFR 133.7 ML/MIN Glucose 100 (74-106) mg/dL Lactic Acid (0.4-2.0) Calcium 9.4 (8.4-10.2) mg/dL Magnesium (1.6-2.3) mg/dL Total Bilirubin 0.90 (0.2-1.3) mg/dL AST 26 (14-36) U/L ALT 21 (0-35) U/L Alkaline Phosphatase 117 (38-126) U/L Serum Total Protein 8.7 H (6.3-8.2) g/dL Albumin 4.7 (3.5-5.0) g/dL Lipase (23-300) U/L Beta HCG, Quant mIU/ml Urine Color (Yellow) Urine Appearance (Clear) Urine pH (4.6-8.0) Ur Specific Towner (1.005-1.030) Urine Protein (Negative) Urine Glucose (UA) (Negative) mg/dL Urine Ketones (Negative) Urine Blood (Negative) Urine Nitrite (Negative) Urine Bilirubin (Negative) Urine Urobilinogen (0.2) mg/dL Ur Leukocyte Esterase (Negative) U Hyaline Cast (Auto) (0-2) /LPF Urine Microscopic RBC (0-5) /HPF Urine Microscopic WBC (0-5) /HPF Ur Epithelial Cells (None Seen) /HPF Urine Bacteria (None Seen) /HPF Urine Mucus (NEGATIVE) /HPF Urine Culture Reflexed (NO) Urine HCG, Qual (NEGATIVE) Monoscreen (NEGATIVE) Influenza Type A Ag NEGATIVE (NEGATIVE) Influenza Type B Ag NEGATIVE (NEGATIVE) RSV (PCR) NEGATIVE (NEGATIVE) SARS-CoV-2 (PCR) NEGATIVE (NEGATIVE) 05/12/24 05/12/24 Range/Units 04:18 04:18 WBC 11.9 H (3.98-10.04) x10^3/uL RBC 3.82 L (3.93-5.22) x10^6/uL Hgb 10.7 L (11.2-15.7) g/dL Hct 31.4 L (34.1-44.9) % MCV 82.2 (79.4-94.8) fL MCH 28.0 (25.6-32.2) pg MCHC 34.1 (32.2-35.5) g/dL RDW 13.7 (11.7-14.4) % Plt Count 312 (182-369) x10^3/uL MPV 9.2 L (9.4-12.3) fL Gran % 79.8 H (34.0-71.1) % Immature Gran % (Auto) 0.3 (0.001-0.429) % Nucleat RBC Rel Count 0.0 (0.00-0.2) % Eos # (Auto) 0.05 (0.04-0.36) x10^3/uL Immature Gran # (Auto) 0.04 H (0.001-0.031) x10^3u/L Absolute Lymphs (auto) 1.60 (1.18-3.74) x10^3/uL Absolute Monos (auto) 0.68 (0.24-0.86) x10^3/uL Absolute Nucleated RBC 0.00 (0.00-0.012) x10^3u/L Lymphocytes % 13.5 L (19.3-51.7) % Monocytes % 5.7 (4.7-12.5) % Eosinophils % 0.4 L (0.7-5.8) % Basophils % 0.3 (0.1-1.2) % Absolute Granulocytes 9.49 H (1.56-6.13) x10^3/uL Basophils # 0.03 (0.01-0.08) x10^3/uL Sodium 137 (135-145) mmol/L Potassium 3.8 (3.5-5.1) mmol/L Chloride 109 H (98-107) mmol/L Carbon Dioxide 17 L (22-30) mmol/L Anion Gap 14.1 (5-15) MEQ/L BUN 3 L (7-17) mg/dL Creatinine 0.46 L (0.52-1.04) mg/dL Estimated GFR 139.5 ML/MIN Glucose 94 (74-106) mg/dL Lactic Acid (0.4-2.0) Calcium 8.4 (8.4-10.2) mg/dL Magnesium 2.0 (1.6-2.3) mg/dL Total Bilirubin (0.2-1.3) mg/dL AST (14-36) U/L ALT (0-35) U/L Alkaline Phosphatase (38-126) U/L Serum Total Protein (6.3-8.2) g/dL Albumin (3.5-5.0) g/dL Lipase (23-300) U/L Beta HCG, Quant mIU/ml Urine Color (Yellow) Urine Appearance (Clear) Urine pH (4.6-8.0) Ur Specific Towner (1.005-1.030) Urine Protein (Negative) Urine Glucose (UA) (Negative) mg/dL Urine Ketones (Negative) Urine Blood (Negative) Urine Nitrite (Negative) Urine Bilirubin (Negative) Urine Urobilinogen (0.2) mg/dL Ur Leukocyte Esterase (Negative) U Hyaline Cast (Auto) (0-2) /LPF Urine Microscopic RBC (0-5) /HPF Urine Microscopic WBC (0-5) /HPF Ur Epithelial Cells (None Seen) /HPF Urine Bacteria (None Seen) /HPF Urine Mucus (NEGATIVE) /HPF Urine Culture Reflexed (NO) Urine HCG, Qual (NEGATIVE) Monoscreen (NEGATIVE) Influenza Type A Ag (NEGATIVE) Influenza Type B Ag (NEGATIVE) RSV (PCR) (NEGATIVE) SARS-CoV-2 (PCR) (NEGATIVE) Radiology Exams: Radiology Procedures Category Date Time Status OB TRANSVAGINAL [US] Routine Exams 05/12/24 08:00 Completed Assessment/Plan (1) UTI in Current Visit: Yes Status: Acute Assessment & Plan: - IV Aztreonam due to allergy profile and . - Will need to consider with choice of po antibiotics at discharge. - Follow culture.- UC gram negative sensitivity pending - Leukocytosis noted. - Trend WBC- improved today 11.9 - CBC, CMP reviewed Code(s): O23.40 - UNSP INFECTION OF URINARY TRACT IN , UNSP TRIMESTER (2) Cough Current Visit: Yes Status: Acute Assessment & Plan: - Robitussion PRN Code(s): R05.9 - COUGH, UNSPECIFIED (3) Dehydration Current Visit: Yes Status: Acute Assessment & Plan: - IVF - Anion gap normal today Code(s): E86.0 - DEHYDRATION (4) Hypokalemia Current Visit: Yes Status: Resolved Assessment & Plan: - K+ 3.8- resolved Code(s): E87.6 - HYPOKALEMIA (5) Current Visit: Yes Status: Acute Assessment & Plan: - Urine HCG + - Transvaginal US negative for etopic Code(s): Z34.90 - ENCNTR FOR SUPRVSN OF NORMAL , UNSP, UNSP TRIMESTER (6) Diarrhea Current Visit: Yes Status: Acute Assessment & Plan: - Acute - probiotic - Stool C-diff Code(s): R19.7 - DIARRHEA, UNSPECIFIED (7) Viral syndrome Current Visit: Yes Status: Acute Assessment & Plan: - IVF VTE: SCD's Next of KIN: Sammie Coleman- Parent [phone] D/C plan: tomorrow Code status: Full
[2024-05-12] MEDS ORDERED: OCEAN Nasal Spray NS PRN (11:21)
[2024-05-12] MEDS: Sodium Chloride 0.9% 1000 ML 1,000 ML IV SCH (13:17)
[2024-05-12 16:00] LABS: 027 TOX PROD PRESUMPTIVE NEGATIVE (NEGATIVE); TOXIGENIC C. DIFF ORG NEGATIVE (NEGATIVE)
[2024-05-12] MEDS: TYLENOL 325 MG PO PRN (16:22)
[2024-05-13 04:50] LABS: Hemoglobin 10.3 g/dL (11.2-15.7); Mean Cell Volume 84.2 fL (79.4-94.8); Mean Corpuscular Hgb Concent. 33.2 g/dL (32.2-35.5); Mean Platelet Volume 9.1 fL (9.4-12.3); Platelet Count 315 x10^3/uL (182-369); Red Blood Count 3.68 x10^6/uL (3.93-5.22); Red Cell Distribution Width 13.3 % (11.7-14.4); White Blood Count 9.2 x10^3/uL (3.98-10.04)
[2024-05-13 05:09] LABS: ALBUMIN 3.4 g/dL (3.5-5.0); BILIRUBIN,TOTAL 0.3 mg/dL (0.2-1.3); Calcium 8.4 mg/dL (8.4-10.2); Creatinine 1 0.45 mg/dL (0.52-1.04); EST GLOMERULAR FILTRATION RATE 140.3 ML/MIN; Potassium 3.3 mmol/L (3.5-5.1); Total Protein 6.6 g/dL (6.3-8.2)
--- NOTE | 2024-05-13 06:13 | PCM.NOTE ---
Date and Time: 05/13/24607 Subjective Assessment: Ms. Coleman is a 19 year old female with PMCH of a tubal and current every day smoker who presented to ED 05/11/24 with a two week history of flu- like symptoms including a productive cough with green sputum. She also reported foul smelling urine with nausea and vomiting. She was evaluated OP with a negative workup. Upon presentation patient septic with tachycardia - HR max at 140, WBC at 14.6, and UTI as source of infection. Patient labs also with positive HCG and acidois with co2 levels at 18. Of note patient is 7 para 2 - 1 tubal , 3 miscarriages. She follows with Dr. Jenkins (screw machine adjuster automatic). IP treatment with Aztreonam due to allergy profile and consideration to . Transvaginal US negative for ectopic . Ucult with Ecoli. Patient is a difficult case to multi-allergy profile. 05/13/24: Met with patient bedside. Requests that not be discussed with anyone except her. Febrile overnight. Endorses weakness and nausea. Discussed case with pharmacy and OB regarding abx on discharge - most likely will have to stay until she completes course of Aztreonam due to mulitple allergies and limited oral options. Diarrhea has resolved. No urinary symptoms. - Review of Systems Constitutional: Fever, Weakness Eyes: No Symptoms Ears, Nose, & Throat: No Symptoms Respiratory: No Symptoms Cardiac: No Symptoms Abdominal/Gastrointestinal: No Symptoms Genitourinary Symptoms: No Symptoms Musculoskeletal: No Symptoms Skin: No Symptoms Neurological: No Symptoms Psychological: No Symptoms Endocrine: No Symptoms Hematologic/Lymphatic: No Symptoms Immunological/Allergic: No Symptoms Objective Exam General Appearance: no apparent distress Neurologic Exam: alert, oriented x 3, cooperative Skin Exam: normal color Eye Exam: PERRL Ears, Nose, Throat Exam: normal ENT inspection Neck Exam: normal inspection Respiratory Exam: normal breath sounds, lungs clear Cardiovascular Exam: tachycardia Gastrointestinal/Abdomen Exam: soft, normal bowel sounds Extremity Exam: normal inspection Back Exam: normal inspection Pelvic Exam: deferred Rectal Exam: deferred Objective Data Vital Signs: Vital Signs - 24 hr Temp Pulse Resp BP Pulse Ox 05/13/24 04:00 98.5 F 91 H 23 106/54 99 05/13/24 00:00 20 05/12/24 23:35 100.1 F 115 H 20 117/61 100 05/12/24 20:00 98.5 F 113 H 18 122/72 99 05/12/24 16:00 99.3 F 115 H 16 107/57 98 05/12/24 11:26 98.3 F 97 H 16 112/66 97 05/12/24 07:21 107 H 16 114/58 96 Pain Assessment - Last Documented Pain Intensity 0 Pain Scale Used 0-10 Pain Scale Intake and Output: Intake & Output 05/10/24 05/11/24 05/12/24 05/13/24 11:59 11:59 11:59 11:59 Intake Total 1541 2921 Output Total 600 1100 Balance 941 1821 Weight 40.8 kg Lab Results: Lab Results-Last 24 Hours 05/12/24 05/12/24 05/13/24 Range/Units 04:18 15:14 04:15 WBC 9.2 (3.98-10.04) x10^3/uL RBC 3.68 L (3.93-5.22) x10^6/uL Hgb 10.3 L (11.2-15.7) g/dL Hct 31.0 L (34.1-44.9) % MCV 84.2 (79.4-94.8) fL MCH 28.0 (25.6-32.2) pg MCHC 33.2 (32.2-35.5) g/dL RDW 13.3 (11.7-14.4) % Plt Count 315 (182-369) x10^3/uL MPV 9.1 L (9.4-12.3) fL Sodium 137 (135-145) mmol/L Potassium 3.8 (3.5-5.1) mmol/L Chloride 109 H (98-107) mmol/L Carbon Dioxide 17 L (22-30) mmol/L Anion Gap 14.1 (5-15) MEQ/L BUN 3 L (7-17) mg/dL Creatinine 0.46 L (0.52-1.04) mg/dL Estimated GFR 139.5 ML/MIN Glucose 94 (74-106) mg/dL Calcium 8.4 (8.4-10.2) mg/dL Magnesium 2.0 (1.6-2.3) mg/dL Total Bilirubin (0.2-1.3) mg/dL AST (14-36) U/L ALT (0-35) U/L Alkaline Phosphatase (38-126) U/L Serum Total Protein (6.3-8.2) g/dL Albumin (3.5-5.0) g/dL C. difficile Screen NEGATIVE (NEGATIVE) C.difficile [id number] PRESUMPTIVE NEGATIVE (NEGATIVE) 05/13/24 Range/Units 04:15 WBC (3.98-10.04) x10^3/uL RBC (3.93-5.22) x10^6/uL Hgb (11.2-15.7) g/dL Hct (34.1-44.9) % MCV (79.4-94.8) fL MCH (25.6-32.2) pg MCHC (32.2-35.5) g/dL RDW (11.7-14.4) % Plt Count (182-369) x10^3/uL MPV (9.4-12.3) fL Sodium 138 (135-145) mmol/L Potassium 3.3 L (3.5-5.1) mmol/L Chloride 109 H (98-107) mmol/L Carbon Dioxide 23 (22-30) mmol/L Anion Gap 10.0 (5-15) MEQ/L BUN 3 L (7-17) mg/dL Creatinine 0.45 L (0.52-1.04) mg/dL Estimated GFR 140.3 ML/MIN Glucose 103 (74-106) mg/dL Calcium 8.4 (8.4-10.2) mg/dL Magnesium (1.6-2.3) mg/dL Total Bilirubin 0.30 (0.2-1.3) mg/dL AST 20 (14-36) U/L ALT 14 (0-35) U/L Alkaline Phosphatase 75 (38-126) U/L Serum Total Protein 6.6 (6.3-8.2) g/dL Albumin 3.4 L (3.5-5.0) g/dL C. difficile Screen (NEGATIVE) C.difficile [id number] (NEGATIVE) Radiology Exams: Radiology Procedures Category Date Time Status OB TRANSVAGINAL [US] Routine Exams 05/12/24 08:00 Completed Assessment/Plan (1) UTI in Current Visit: Yes Status: Acute Assessment & Plan: -continue IV Aztreonam due to allergy profile and - Urine culture reviewed showing EColi - WBC reviewed and downtrending -wnl limits today at 9.2<11.9<14.6 -trend -vitals reviewed, febrile overnight with Tmax at 100.1 Code(s): O23.40 - UNSP INFECTION OF URINARY TRACT IN , UNSP TRIMESTER (2) Hypokalemia Current Visit: Yes Status: Resolved Assessment & Plan: -cmp reviewed with potassium at 3.3 - will replenish per potassium protocol Code(s): E87.6 - HYPOKALEMIA (3) Cough Current Visit: Yes Status: Acute Assessment & Plan: - Robitussin PRN -Respiratory viral panel negative Code(s): R05.9 - COUGH, UNSPECIFIED (4) Dehydration Current Visit: Yes Status: Acute Assessment & Plan: -continue IVF at 75ml/hr Code(s): E86.0 - DEHYDRATION (5) Diarrhea Current Visit: Yes Status: Acute Assessment & Plan: - Resolved - probiotic - Stool C-diff negative Code(s): R19.7 - DIARRHEA, UNSPECIFIED (6) Current Visit: Yes Status: Acute Assessment & Plan: - Urine HCG + - Transvaginal US negative for etopic -Patient follows with Dr. Jenkins as OP - will need follow up Code(s): Z34.90 - ENCNTR FOR SUPRVSN OF NORMAL , UNSP, UNSP TRIMESTER (7) Viral syndrome Current Visit: Yes Status: Acute Assessment & Plan: -supportive care (Tylenol, cough suppressant) - IVF VTE: SCD's Next of KIN: Sammie Coleman- Parent [phone] D/C plan: tomorrow Code status: Full
[2024-05-13] MEDS: Klor Con PO SCH (07:42)
--- NOTE | 2024-05-14 05:10 | PCM.NOTE ---
Date and Time: 05/14/24 0509 Subjective Assessment: Ms. Coleman is a 19 year old female with PMCH of a tubal and current every day smoker who presented to ED 05/11/24 with a two week history of flu- like symptoms including a productive cough with green sputum. She also reported foul smelling urine with nausea and vomiting. She was evaluated OP with a negative workup. Upon presentation patient septic with tachycardia - HR max at 140, WBC at 14.6, and UTI as source of infection. Patient labs also with positive HCG and acidois with co2 levels at 18. Of note patient is 7 para 2 - 1 tubal , 3 miscarriages. 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 IP treatment with Aztreonam due to allergy profile and consideration to . Transvaginal US negative for ectopic . Ucult with Ecoli. Patient is a difficult case to multi-allergy profile. 05/13/24: Met with patient bedside. Requests that not be discussed with anyone except her. Febrile overnight. Endorses weakness and nausea. Discussed case with pharmacy and OB regarding abx on discharge - most likely will have to stay until she completes course of Aztreonam due to multiple allergies and limited oral options. Diarrhea has resolved. No urinary symptoms. 05/14/24: Met with patient bedside. Endorses feeling better today. No cough, nausea, or vomiting. No urinary symptoms. Afebrile overnight. Plan to continue IV abx with discharge tomorrow. Will need follow up with PCP and OB on discharge. Denies fever,cough, sob, cp, abdominal pain, WATKINS, dizziness, N/V/D. - Review of Systems Constitutional: No Symptoms Eyes: No Symptoms Ears, Nose, & Throat: No Symptoms Respiratory: No Symptoms Cardiac: No Symptoms Abdominal/Gastrointestinal: No Symptoms Genitourinary Symptoms: No Symptoms Musculoskeletal: No Symptoms Skin: No Symptoms Neurological: No Symptoms Psychological: No Symptoms Endocrine: No Symptoms Hematologic/Lymphatic: No Symptoms Immunological/Allergic: No Symptoms Objective Exam General Appearance: no apparent distress Neurologic Exam: alert, oriented x 3, cooperative Skin Exam: pale Eye Exam: PERRL Ears, Nose, Throat Exam: normal ENT inspection Neck Exam: normal inspection Respiratory Exam: normal breath sounds, lungs clear Cardiovascular Exam: regular rate/rhythm, normal heart sounds Gastrointestinal/Abdomen Exam: soft, normal bowel sounds Extremity Exam: normal inspection Back Exam: normal inspection Pelvic Exam: deferred Rectal Exam: deferred Objective Data Vital Signs: Vital Signs - 24 hr Temp Pulse Resp BP Pulse Ox 05/14/24 04:00 16 05/14/24 03:44 98.2 F 86 16 103/58 98 05/14/24 00:00 98.4 F 85 16 118/64 94 L 05/13/24 20:00 98.1 F 99 H 16 113/68 94 L 05/13/24 19:27 16 05/13/24 16:00 99.2 F 104 H 16 109/68 94 L 05/13/24 12:00 18 05/13/24 11:32 98.7 F 115 H 18 121/75 99 05/13/24 08:00 16 05/13/24 07:32 99.0 F 94 H 16 112/58 95 Pain Assessment - Last Documented Pain Intensity 0 Pain Scale Used 0-10 Pain Scale Intake and Output: Intake & Output 05/11/24 05/12/24 05/13/24 05/14/24 11:59 11:59 11:59 11:59 Intake Total 1541 3281 2892 Output Total 600 1100 2400 Balance 941 2181 492 Weight 40.8 kg Lab Results: Lab Results-Last 24 Hours 05/13/24 05/13/24 05/13/24 Range/Units 04:15 04:15 04:15 WBC 9.2 (3.98-10.04) x10^3/uL RBC 3.68 L (3.93-5.22) x10^6/uL Hgb 10.3 L (11.2-15.7) g/dL Hct 31.0 L (34.1-44.9) % MCV 84.2 (79.4-94.8) fL MCH 28.0 (25.6-32.2) pg MCHC 33.2 (32.2-35.5) g/dL RDW 13.3 (11.7-14.4) % Plt Count 315 (182-369) x10^3/uL MPV 9.1 L (9.4-12.3) fL Sodium 138 (135-145) mmol/L Potassium 3.3 L (3.5-5.1) mmol/L Chloride 109 H (98-107) mmol/L Carbon Dioxide 23 (22-30) mmol/L Anion Gap 10.0 (5-15) MEQ/L BUN 3 L (7-17) mg/dL Creatinine 0.45 L (0.52-1.04) mg/dL Estimated GFR 140.3 ML/MIN Glucose 103 (74-106) mg/dL Calcium 8.4 (8.4-10.2) mg/dL Magnesium 2.0 (1.6-2.3) mg/dL Total Bilirubin 0.30 (0.2-1.3) mg/dL AST 20 (14-36) U/L ALT 14 (0-35) U/L Alkaline Phosphatase 75 (38-126) U/L Serum Total Protein 6.6 (6.3-8.2) g/dL Albumin 3.4 L (3.5-5.0) g/dL Beta HCG, Quant mIU/ml 05/13/24 05/13/24 Range/Units 04:15 12:34 WBC (3.98-10.04) x10^3/uL RBC (3.93-5.22) x10^6/uL Hgb (11.2-15.7) g/dL Hct (34.1-44.9) % MCV (79.4-94.8) fL MCH (25.6-32.2) pg MCHC (32.2-35.5) g/dL RDW (11.7-14.4) % Plt Count (182-369) x10^3/uL MPV (9.4-12.3) fL Sodium (135-145) mmol/L Potassium 4.1 D (3.5-5.1) mmol/L Chloride (98-107) mmol/L Carbon Dioxide (22-30) mmol/L Anion Gap (5-15) MEQ/L BUN (7-17) mg/dL Creatinine (0.52-1.04) mg/dL Estimated GFR ML/MIN Glucose (74-106) mg/dL Calcium (8.4-10.2) mg/dL Magnesium (1.6-2.3) mg/dL Total Bilirubin (0.2-1.3) mg/dL AST (14-36) U/L ALT (0-35) U/L Alkaline Phosphatase (38-126) U/L Serum Total Protein (6.3-8.2) g/dL Albumin (3.5-5.0) g/dL Beta HCG, Quant 506.80 mIU/ml Radiology Exams: Radiology Procedures Category Date Time Status OB TRANSVAGINAL [US] Routine Exams 05/12/24 08:00 Completed Multi-Disciplinary Progress Notes: Multi-Disciplinary Progress Notes 05/13/24 10:30 Case Management Note by Mounika Gar S/W PATIENT- SHE CONTINUES TO DENY ANY NEW NEEDS AT TIME OF DC. SHE PLANS TO DC HOME TO HER PLF AT TIME OF DC Initialized on 05/13/24 10:30 - END OF NOTE Assessment/Plan (1) UTI in Current Visit: Yes Status: Acute Assessment & Plan: -continue IV Aztreonam due to allergy profile and - Urine culture reviewed showing EColi - WBC reviewed and downtrending -wnl limits today at 9.2<11.9<14.6 -trend -vitals reviewed, febrile overnight with Tmax at 100.1 05/14: -Afebrile overnight -WBC reviewed and wnl at 8.0 Code(s): O23.40 - UNSP INFECTION OF URINARY TRACT IN , UNSP TRIMESTER (2) Hypokalemia Current Visit: Yes Status: Resolved Assessment & Plan: -cmp reviewed with potassium at 3.3 - will replenish per potassium protocol 05/14: -Resolved Code(s): E87.6 - HYPOKALEMIA (3) Cough Current Visit: Yes Status: Acute Assessment & Plan: - Robitussin PRN -Respiratory viral panel negative 05/14: -resolved Code(s): R05.9 - COUGH, UNSPECIFIED (4) Dehydration Current Visit: Yes Status: Acute Assessment & Plan: -continue IVF at 75ml/hr Code(s): E86.0 - DEHYDRATION (5) Diarrhea Current Visit: Yes Status: Acute Assessment & Plan: - Resolved - probiotic - Stool C-diff negative 05/14: -resolved Code(s): R19.7 - DIARRHEA, UNSPECIFIED (6) Current Visit: Yes Status: Acute Assessment & Plan: - Urine HCG + - Transvaginal US negative for etopic -Patient follows with Dr. Jenkins as OP - will need follow up Code(s): Z34.90 - ENCNTR FOR SUPRVSN OF NORMAL , UNSP, UNSP TRIMESTER (7) Viral syndrome Current Visit: Yes Status: Acute Assessment & Plan: -supportive care (Tylenol, cough suppressant) - IVF VTE: SCD's Next of KIN: Sammie Coleman- Parent [phone] D/C plan: tomorrow Code status: Full Code(s): O23.40 - UNSP INFECTION OF URINARY TRACT IN , UNSP TRIMESTER (2) Hypokalemia Current Visit: Yes Status: Resolved Code(s): E87.6 - HYPOKALEMIA (3) Cough Current Visit: Yes Status: Acute Code(s): R05.9 - COUGH, UNSPECIFIED (4) Dehydration Current Visit: Yes Status: Acute Code(s): E86.0 - DEHYDRATION (5) Diarrhea Current Visit: Yes Status: Acute Code(s): R19.7 - DIARRHEA, UNSPECIFIED (6) Current Visit: Yes Status: Acute Code(s): Z34.90 - ENCNTR FOR SUPRVSN OF NORMAL , UNSP, UNSP TRIMESTER (7) Viral syndrome Current Visit: Yes Status: Acute
[2024-05-14 05:52] LABS: Absolute Neutrophil Ct (ANC) 4.99 x10^3/uL (1.56-6.13); BASOPHIL % 0.2 % (0.1-1.2); Basophil (Absolute #) 0.02 x10^3/uL (0.01-0.08); Eosinophil % 1.6 % (0.7-5.8); Eosinophil (Absolute #) 0.13 x10^3/uL (0.04-0.36); Hematocrit 31.2 % (34.1-44.9); Hemoglobin 10.4 g/dL (11.2-15.7); IMMATURE GRAN # 0.04 x10^3u/L (0.001-0.031); IMMATURE GRAN % 0.5 % (0.001-0.429); Lymphocyte (Absolute #) 2.32 x10^3/uL (1.18-3.74); Lymphocytes % 28.9 % (19.3-51.7); Mean Cell Volume 82.8 fL (79.4-94.8); Mean Corpuscular Hemoglobin 27.6 pg (25.6-32.2); Mean Corpuscular Hgb Concent. 33.3 g/dL (32.2-35.5); Mean Platelet Volume 9.2 fL (9.4-12.3); Monocyte (Absolute #) 0.52 x10^3/uL (0.24-0.86); Monocytes % 6.5 % (4.7-12.5); Neutrophil % 62.3 % (34.0-71.1); Platelet Count 375 x10^3/uL (182-369); Red Blood Count 3.77 x10^6/uL (3.93-5.22); Red Cell Distribution Width 13.3 % (11.7-14.4)
[2024-05-14 06:19] LABS: ALBUMIN 3.4 g/dL (3.5-5.0); ALKALINE PHOSPHATASE 79 U/L (38-126); ANION GAP 12.3 MEQ/L (5-15); CHLORIDE 109 mmol/L (98-107); Calcium 8.8 mg/dL (8.4-10.2); Carbon Dioxide 21 mmol/L (22-30); Creatinine 1 0.43 mg/dL (0.52-1.04); EST GLOMERULAR FILTRATION RATE 141.8 ML/MIN; Glucose 97 mg/dL (74-106); Potassium 3.9 mmol/L (3.5-5.1); SGOT/AST 23 U/L (14-36); SGPT/ALT 15 U/L (0-35); SODIUM 139 mmol/L (135-145); Total Protein 6.9 g/dL (6.3-8.2)
[2024-05-14 06:41] LABS: BLOOD UREA NITROGEN < 2 mg/dL (7-17)
[2024-05-14] MEDS: SODIUM BICARBONATE PO SCH (08:51)
--- NOTE | 2024-05-15 05:04 | PCM.DS ---
Discharge Summary Date of Admission: 05/11/24 19:49 Date of Discharge: 05/15/24 Admitting Physician: YT PADILLA MD Primary Care Provider: FRIEDA MILLER MD Allergies Allergies amoxicillin [From Augmentin] Allergy (Verified 05/11/24 13:59) cefdinir [From Omnicef] Allergy (Verified 05/11/24 13:59) cephalexin [From Keflex] Allergy (Verified 05/11/24 13:59) clavulanic acid [From Augmentin] Allergy (Verified 05/11/24 13:59) Hospital Summary - Hospital Course Hospital Course: Ms. Coleman is a 19 year old female with PMCH of a tubal and current every day smoker who presented to ED 05/11/24 with a two week history of flu- like symptoms including a productive cough with green sputum. She also reported foul smelling urine with nausea and vomiting. She was evaluated OP with a negative workup. Upon presentation patient septic with tachycardia - HR max at 140, WBC at 14.6, and UTI as source of infection. Patient labs also with positiv e HCG and acidois with co2 levels at 18. Of note patient is 7 para 2 - 1 tubal , 3 miscarriages. 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 IP treatment with Aztreonam due to allergy profile and consideration to . Transvaginal US negative for ectopic . Ucult with Ecoli. Has completed course of IV abx aztreonam. Sputum and blood cultures negative to date. Labs and vitals stable. No further urinary symptoms. No further episodes of diarrhea. Cough has improved. Afebrile. No dyspnea. Labs/vitals stable. Requesting discharge home today. Advised follow up with OB. Follow up with PCP next week for urine recheck. Discharge Note New Diagnosis: UTI/IUP New Medications:none Follow Up: PCP/OB Latest Assessment & Plan (1) UTI in Current Visit: Yes Status: Acute Assessment & Plan: -continue IV Aztreonam due to allergy profile and - Urine culture reviewed showing EColi - WBC reviewed and downtrending -wnl limits today at 9.2<11.9<14.6 -trend -vitals reviewed, febrile overnight with Tmax at 100.1 05/14: -Afebrile overnight -WBC reviewed and wnl at 8.0 Code(s): O23.40 - UNSP INFECTION OF URINARY TRACT IN , UNSP TRIMESTER (2) Hypokalemia Current Visit: Yes Status: Resolved Assessment & Plan: -cmp reviewed with potassium at 3.3 - will replenish per potassium protocol 05/14: -Resolved Code(s): E87.6 - HYPOKALEMIA (3) Cough Current Visit: Yes Status: Acute Assessment & Plan: - Robitussin PRN -Respiratory viral panel negative 05/14: -resolved Code(s): R05.9 - COUGH, UNSPECIFIED (4) Dehydration Current Visit: Yes Status: Acute Assessment & Plan: -continue IVF at 75ml/hr Code(s): E86.0 - DEHYDRATION (5) Diarrhea Current Visit: Yes Status: Acute Assessment & Plan: - Resolved - probiotic - Stool C-diff negative 05/14: -resolved Code(s): R19.7 - DIARRHEA, UNSPECIFIED (6) Current Visit: Yes Status: Acute Assessment & Plan: - Urine HCG + - Transvaginal US negative for etopic -Patient follows with Dr. Jenkins as OP - will need follow up Code(s): Z34.90 - ENCNTR FOR SUPRVSN OF NORMAL , UNSP, UNSP TRIMESTER (7) Viral syndrome Current Visit: Yes Status: Acute Assessment & Plan: -supportive care (Tylenol, cough suppressant) - IVF I spent 35 minutes [id number] with the patient on the day of discharge performing discharge exam, discussing hospital stay and discharge instructions with patient and caregivers, preparation of discharge records, prescriptions & referral forms and addressing any questions/concerns the patient had as do cumented above. - Vitals & Intake/Output Vital Signs: Vital Signs Temperature 98.4 F 05/15/24 04:00 Pulse Rate 84 05/15/24 04:00 Respiratory Rate 15 05/15/24 04:00 Blood Pressure 110/70 05/15/24 04:00 O2 Sat by Pulse Oximetry 98 05/15/24 04:00 Intake & Output: Intake & Output 05/12/24 05/13/24 05/14/24 05/15/24 11:59 11:59 11:59 11:59 Intake Total 1541 3281 3032 2089 Output Total 600 1100 2400 1200 Balance 941 2181 632 889 Weight 40.8 kg - Lab Result Diagrams: 05/15/24 05:29 05/15/24 05:29 Lab Results-Last 24 Hrs: Lab Results-Last 24 Hours 05/14/24 05/14/24 Range/Units 05:43 05:43 WBC 8.0 (3.98-10.04) x10^3/uL RBC 3.77 L (3.93-5.22) x10^6/uL Hgb 10.4 L (11.2-15.7) g/dL Hct 31.2 L (34.1-44.9) % MCV 82.8 (79.4-94.8) fL MCH 27.6 (25.6-32.2) pg MCHC 33.3 (32.2-35.5) g/dL RDW 13.3 (11.7-14.4) % Plt Count 375 H (182-369) x10^3/uL MPV 9.2 L (9.4-12.3) fL Gran % 62.3 (34.0-71.1) % Immature Gran % (Auto) 0.5 H (0.001-0.429) % Nucleat RBC Rel Count 0.0 (0.00-0.2) % Eos # (Auto) 0.13 (0.04-0.36) x10^3/uL Immature Gran # (Auto) 0.04 H (0.001-0.031) x10^3u/L Absolute Lymphs (auto) 2.32 (1.18-3.74) x10^3/uL Absolute Monos (auto) 0.52 (0.24-0.86) x10^3/uL Absolute Nucleated RBC 0.00 (0.00-0.012) x10^3u/L Lymphocytes % 28.9 (19.3-51.7) % Monocytes % 6.5 (4.7-12.5) % Eosinophils % 1.6 (0.7-5.8) % Basophils % 0.2 (0.1-1.2) % Absolute Granulocytes 4.99 (1.56-6.13) x10^3/uL Basophils # 0.02 (0.01-0.08) x10^3/uL Sodium 139 (135-145) mmol/L Potassium 3.9 (3.5-5.1) mmol/L Chloride 109 H (98-107) mmol/L Carbon Dioxide 21 L (22-30) mmol/L Anion Gap 12.3 (5-15) MEQ/L BUN < 2 L (7-17) mg/dL Creatinine 0.43 L (0.52-1.04) mg/dL Estimated GFR 141.8 ML/MIN Glucose 97 (74-106) mg/dL Calcium 8.8 (8.4-10.2) mg/dL Magnesium 2.0 (1.6-2.3) mg/dL Total Bilirubin 0.30 (0.2-1.3) mg/dL AST 23 (14-36) U/L ALT 15 (0-35) U/L Alkaline Phosphatase 79 (38-126) U/L Serum Total Protein 6.9 (6.3-8.2) g/dL Albumin 3.4 L (3.5-5.0) g/dL Micro Results-Entire Visit: Microbiology 05/11/24 22:38 Gram Stain - Final Sputum - Expectorant Sputum Culture - Preliminary ORGANISMS ISOLATED ARE CONSISTENT WITH NORMAL RESP BREEZY MODERATE GROWTH, NO PREDOMINANT ORGANISM 05/11/24 14:13 Urine Culture - Final Clean Catch Midstream Escherichia Coli 05/11/24 14:38 Blood Culture - Preliminary Blood - Procedures and Test Procedures and Tests throughout Hospitalization: Therapy Orders & Screens 05/11/24 20:24 Smoking Cessation Education ONCE Comment: Diagnosis: viral syndrome, dehydration, tachycardia Smoking Status: Current every day smoker How long have you smoked: 5 years Have you smoked in the past 12 months: Yes Do you dip or chew tobacco: No Discharge Exam General Appearance: no apparent distress Neurologic Exam: alert, oriented x 3, cooperative Eye Exam: PERRL Ears, Nose, Throat Exam: normal ENT inspection Neck Exam: normal inspection Respiratory Exam: normal breath sounds, lungs clear Cardiovascular Exam: regular rate/rhythm, normal heart sounds Gastrointestinal/Abdomen Exam: soft, normal bowel sounds Pelvic Exam: deferred Rectal Exam: deferred Back Exam: normal inspection Extremity Exam: normal inspection Skin Exam: pale Final Diagnosis/Problem List - Final Discharge Diagnosis/Problem (1) UTI in Current Visit: Yes Status: Acute Code(s): O23.40 - UNSP INFECTION OF URINARY TRACT IN , UNSP TRIMESTER (2) Hypokalemia Current Visit: Yes Status: Resolved Code(s): E87.6 - HYPOKALEMIA (3) Cough Current Visit: Yes Status: Resolved Code(s): R05.9 - COUGH, UNSPECIFIED (4) Dehydration Current Visit: Yes Status: Resolved Code(s): E86.0 - DEHYDRATION (5) Diarrhea Current Visit: Yes Status: Resolved Code(s): R19.7 - DIARRHEA, UNSPECIFIED (6) Current Visit: Yes Status: Chronic Code(s): Z34.90 - ENCNTR FOR SUPRVSN OF NORMAL , UNSP, UNSP TRIMESTER (7) Viral syndrome Current Visit: Yes Status: Resolved - Discharge Discharge Date: 05/15/24 Disposition: Home, Self-Care Condition: Stable Prescriptions: No Action No Reportable Medications [No Reported Medications] Follow up with: FRIEDA MILLER MD [Primary Care Provider] - 05/19/24 9:00 am
[2024-05-15 05:33] LABS: Absolute Neutrophil Ct (ANC) 4.95 x10^3/uL (1.56-6.13); BASOPHIL % 0.4 % (0.1-1.2); Basophil (Absolute #) 0.03 x10^3/uL (0.01-0.08); Eosinophil % 1.3 % (0.7-5.8); Eosinophil (Absolute #) 0.11 x10^3/uL (0.04-0.36); Hematocrit 30.4 % (34.1-44.9); Hemoglobin 10.3 g/dL (11.2-15.7); IMMATURE GRAN # 0.04 x10^3u/L (0.001-0.031); IMMATURE GRAN % 0.5 % (0.001-0.429); Lymphocyte (Absolute #) 2.69 x10^3/uL (1.18-3.74); Lymphocytes % 32.3 % (19.3-51.7); Mean Cell Volume 82.8 fL (79.4-94.8); Mean Corpuscular Hemoglobin 28.1 pg (25.6-32.2); Mean Corpuscular Hgb Concent. 33.9 g/dL (32.2-35.5); Mean Platelet Volume 8.8 fL (9.4-12.3); Monocyte (Absolute #) 0.52 x10^3/uL (0.24-0.86); Monocytes % 6.2 % (4.7-12.5); Neutrophil % 59.3 % (34.0-71.1); Platelet Count 424 x10^3/uL (182-369); Red Blood Count 3.67 x10^6/uL (3.93-5.22); Red Cell Distribution Width 13.4 % (11.7-14.4); White Blood Count 8.3 x10^3/uL (3.98-10.04)
[2024-05-15 05:58] LABS: ALBUMIN 3.3 g/dL (3.5-5.0); ANION GAP 10.1 MEQ/L (5-15); BILIRUBIN,TOTAL 0.3 mg/dL (0.2-1.3); Calcium 8.7 mg/dL (8.4-10.2); Creatinine 1 0.37 mg/dL (0.52-1.04); EST GLOMERULAR FILTRATION RATE 147.1 ML/MIN; Potassium 3.7 mmol/L (3.5-5.1); Total Protein 6.8 g/dL (6.3-8.2)
[2024-05-15 11:44] VITALS: BP 113/70; PULSE 67; TEMP 98.4; O2SAT 97
[2024-05-15 13:26] VITALS: RESP 15
== END 2024-05-15 14:05 | disposition home or self-care (01) ==
LOC: ED 12:43 → MED SURG 19:49
PROVIDERS: ADMIT Internal Medicine; ATTEND Internal Medicine
DX: O23.41 Unspecified infection of urinary tract in pregnancy, first trimester (principal); E87.6 Hypokalemia; R05.9 Cough, unspecified; R19.7 Diarrhea, unspecified; B34.9 Viral infection, unspecified; A49.8 Other bacterial infections of unspecified site; F17.200 Nicotine dependence, unspecified, uncomplicated; E86.0 Dehydration
CPT/HCPCS: 0241U; 36415; 76817; 80048; 80053; 81001; 81025; 83605; 83690; 83735; 84132; 84702; 85025; 85027; 86308; 87040; 87070; 87077; 87086; 87186; 87493; 93041; 94760; 96374; 99284; Q3014; J2405; J3480; A9270-GY